=== PATIENT | female | born 1990 | race Hispanic/Latino ===

== ENCOUNTER 2016-11-01 20:29 | Outpatient (CLI) | payer OTHER ==
[~2016-11-01] VITALS: Ht 154.9 cm; Wt 73.0 kg
[2016-11-01] MEDS ORDERED: PROT20TA11 PO (21:06)
[2016-11-01] MEDS ORDERED: PRENTAB9 PO (21:06)
[2016-11-01] MEDS ORDERED: BUTORPHANOL 2 MG/ML INJ (J0595) IV ONE (22:30)
[2016-11-01] MEDS ORDERED: PROMETHAZINE INJ 25 MG/ML VIAL (J2550) IV ONE (22:30)
[2016-11-01] MEDS ORDERED: LR 1,000 ML IV ONE (23:00)
[2016-11-01] MEDS ORDERED: LR 1,000 ML IV SCH (23:00)
--- NOTE | 2016-11-02 15:15 | HPE ---
DATE OF ADMISSION: 11/01/2016 25-year-old 2, para 0, abortio 1, last menstrual period (LMP) 02/20/2016, estimated date of delivery (EDC) 11/26/2016 at 36 and 4 weeks of gestation with a 20-hour history of low back pain. Risk factors is she is GBS positive, acid reflux. Labs show B+, HIV negative, hepatitis negative, RPR negative. Varicella equivocal. Pap normal. Urine showed GBS positive. Gonorrhea and chlamydia are negative, and early 1-hour glucose was 87 and the 28-week glucose was 76. Cystic fibrosis was negative. Quad screen was declined. On examination, she appears to be distressed with low back pain; holding her back, vertex was presenting, 70% effaced, -1 and a fingertip in mid position. Blood pressure is 130/78, respirations are 18, pulse 81 and temperature is 98.9. Urine is 10/20, pH 6, negative, negative, negative. She has a category one strip. She is normocephalic, atraumatic. Neck: Full range of motions. Pupils equal and reactive to light. Distal pulses are symmetric. No evidence of deep venous thrombosis (DVT), pulmonary embolism (PE) or superficial phlebitis. Chest is clear bilaterally to bases. No wheezes or rhonchi. No costovertebral angle (CVA) tenderness. Appropriate symphysis fundus height. Four quadrant bowel sounds are noted. A category one strip. No rashes or lesions or pruritus. No arthralgia or myalgia. She is not complaining of cough, wheeze, shortness of breath or dyspnea on exertion. She has no chest pain. She is not bleeding. She is neuro complete. No incontinence, urgency or frequency. No loss of fluid or vaginal discharge. No nausea, vomiting, diarrhea or constipation. No diabetic issues. PAST MEDICAL HISTORY: Unremarkable. SOCIAL HISTORY: She does not smoke, drink or abuse drugs. She is . There is no domestic violence. In summary we have a 36 and 4 weeks of gestation with a low back pain suggestive changes of her cervix, possibly early labor. Our plan of management is to hydrate the patient, questionable labor. Assessment in one hour to establish if there has been any change in her cervix. We discussed the plan with the patient. She is planning on her mother coming in from [place] if she is in active labor.
== END 2016-11-02 06:46 | disposition home or self-care (01) ==
LOC: M LDO 20:29
PROVIDERS: ATTEND Obstetrics & Gynecology
DX: O26.893 Other specified pregnancy related conditions, third trimester (principal); M54.5 Low back pain; Z3A.36 36 weeks gestation of pregnancy; O99.825 Streptococcus B carrier state complicating the puerperium; O99.613 Diseases of the digestive system complicating pregnancy, third trimester; K21.9 Gastro-esophageal reflux disease without esophagitis
CPT/HCPCS: 59025; 96374; 96375; J0595

== ENCOUNTER 2016-11-02 13:06 | Outpatient (CLI) | payer OTHER ==
[~2016-11-02] VITALS: Ht 154.9 cm; Wt 71.0 kg
[~2016-11-02 13:06] MED LIST: PRENTAB9 PO; PROT20TA11 PO
[2016-11-02 13:28] VITALS: BP 129/69
--- NOTE | 2016-11-03 22:45 | HPE ---
DATE: 11/02/2016 This lady is 25-year-old 2, para 0, abortio 1, last menstrual period (LMP) 02/20/2016, estimated date of confinement (EDC) of 11/26/2016 at 36 and 4. Comes in with low back pain. RISK FACTORS She is group B streptococcus (GBS) positive. Has reflux. Labs show B positive, HIV negative, hepatitis negative, RPR negative. Varicella equivocal Pap normal. GBS is positive. Gonorrhea, chlamydia negative. One-hour glucose 87. A 28-week glucose 76. CF was negative and quad was declined. On initial examination, she was distressed female. Symphysis fundus height is 36, vertex presenting. Category 1 strip. No contractions, good accelerations, 70% effaced, minus 1, and a finger tip posterior. Blood pressure 130/78, respirations 18, pulse 81, temperature is 98.9. Urine 1.020, pH 6 negative, negative, negative. We have a with low back pain, considerable discomfort. Our plan of management was to hydrate her, give her some pain medications and attempt to see if we can break the cycle. Reassessment in 2-4 hours. While here, the patient was given Stadol and Phenergan. She intermittently slept through the low back pain. Palpating the abdomen, we could not demonstrate any contractions but she did have some back pain. There is no back spasm. Examination of her back muscles appeared to be normal. No costovertebral angle tenderness. PHYSICAL EXAMINATION: The rest of her physical examination was none remarkable. She is normocephalic, atraumatic. Neck full range of motion. Pupils equal and reactive to light. Distal pulses symmetric. No evidence of deep venous thrombosis (DVT), pulmonary embolism (PE) or superficial phlebitis. She has good motion. Legs good flexion and extension. Good muscle tone. Back muscles themselves are normalized. No deviation, no scoliosis, no suggestion of injury. Her chest is clear bilaterally to bases. No wheezes or rhonchi. Symphysis fundus height is appropriate. Four-quadrant bowel sounds are noted. No arthralgia or myalgia. ASSESSMENT: In summary, we have a lady with intermittent low back pain. No evidence to suggest labor. No change in her cervical dilatation. No evidence of preeclampsia. On multiple examinations of this patient, her cervix was unchanged. Still having the back pain. The patient has an appointment at the office this morning. She is going to be discharged for her with precautions, premature rupture of membranes, bleeding, contractions, decreased movement, and she will be reassessed in the clinic at her usual appointment. In summary we have a 36 and two weeks of gestation with low back pain. No evidence to suggest imminent delivery of labor. The patient was discharged undelivered.
== END 2016-11-02 14:52 | disposition home or self-care (01) ==
LOC: M LDO 13:06
PROVIDERS: ATTEND Obstetrics & Gynecology
DX: O26.893 Other specified pregnancy related conditions, third trimester (principal); M54.5 Low back pain; Z3A.36 36 weeks gestation of pregnancy; O99.825 Streptococcus B carrier state complicating the puerperium; O99.613 Diseases of the digestive system complicating pregnancy, third trimester; K21.9 Gastro-esophageal reflux disease without esophagitis

== ENCOUNTER 2016-11-02 23:38 | Outpatient (CLI) | payer OTHER | END 2016-11-03 00:30 | disposition home or self-care (01) | LOC: M LDO 23:38 | PROVIDERS: ATTEND Obstetrics & Gynecology | DX: O26.893 Other specified pregnancy related conditions, third trimester (principal); M54.5 Low back pain; Z3A.36 36 weeks gestation of pregnancy; O99.613 Diseases of the digestive system complicating pregnancy, third trimester; K21.9 Gastro-esophageal reflux disease without esophagitis; O99.825 Streptococcus B carrier state complicating the puerperium ==

== ENCOUNTER 2016-11-03 05:30 | Inpatient (IN) | payer OTHER ==
[~2016-11-03] VITALS: Ht 154.9 cm; Wt 73.0 kg
[2016-11-03] VITALS (8 sets, daily range): BP systolic 120–150; BP diastolic 58–86
[2016-11-03] MEDS ORDERED: LR 1,000 ML IV SCH (05:51)
[2016-11-03] MEDS ORDERED: OXYTOCIN DRIP 30 UNITS in APPROPRIATE DILUENT 1 EA IV SCH (06:00)
[2016-11-03] MEDS ORDERED: BUTORPHANOL 2 MG/ML INJ (J0595) IV ONE (06:00)
[2016-11-03] MEDS ORDERED: PROMETHAZINE INJ 25 MG/ML VIAL (J2550) IV ONE (06:00)
[2016-11-03] MEDS ORDERED: PENICILLIN G POTASSIUM 5 MU VIAL As Ordered ONE (06:03)
[2016-11-03] MEDS ORDERED: PENICILLIN G POTASSIUM IV 5 MU in D5W MINI-BAG PLUS 100 ML IV STA (06:04)
[2016-11-03 06:26] LABS: MEAN CORPUSCULAR HGB CONC 34.9 g/dl (32.0-36.5); MEAN CORPUSCULAR VOLUME 85.8 fl (80.0-96.0); RED CELL DISTRIBUTION WIDTH 12.2 % (11.5-14.5); WHITE BLOOD COUNT 18.1 K/mm3 (4.0-10.0)
[2016-11-03] MEDS ORDERED: NALBUPHINE HCL 10 MG/ML AMP (J2300) IV PRN (10:00)
[2016-11-03] MEDS ORDERED: PENICILLIN G POTASSIUM IV 2.5 MU in D5W 100 ML IV SCH (10:15)
[2016-11-03] MEDS ORDERED: NALBUPHINE HCL 10 MG/ML AMP (J2300) IM ONE (10:15)
[2016-11-03] MEDS ORDERED: RHOGAM 300 MCG (1500 IU) INJ (J2790) IM SCH (14:30)
[2016-11-03] MEDS ORDERED: ACETAMINOPHEN 500 MG TAB PO PRN (14:30)
[2016-11-03] MEDS ORDERED: METHYLERGONOVINE MALEATE 0.2 MG TAB PO PRN (14:30)
[2016-11-03] MEDS ORDERED: DOCUSATE SODIUM 100 MG CAP PO PRN (14:30)
[2016-11-03] MEDS ORDERED: IBUPROFEN 800 MG TAB PO PRN (14:30)
[2016-11-03] MEDS ORDERED: DIBUCAINE 1% OINTMENT 30GM TOP PRN (14:30)
[2016-11-04 05:24] VITALS: BP 126/56
[2016-11-04] MEDS: PRENATAL VITAMIN TAB PO SCH (08:32)
[2016-11-04 18:00] VITALS: BP 127/58
[2016-11-04 20:29] VITALS: BP 127/58
[2016-11-05 05:24] VITALS: BP 117/62
--- NOTE | 2016-11-05 05:52 | IPN ---
DATE: 11/04/2016 This patient has requested circumcision of their male infant. After discussing risks and benefits of circumcision, medical and nonmedical indications, penile block and aftercare, expressed understanding of the penile block and aftercare, signed and witnessed the consent form. We await the clearance by the blacksmith apprentice.
--- NOTE | 2016-11-05 07:31 | IPNPDOC ---
Text Note Date of Service The patient was seen on 11/05/16. NOTE Anton is a 25yo doing well on PPD 2 s/p uncomplicated after PPROM at 36w5d. She is . Lochia normal, spontaneously voiding and ambulating without difficulty. Tolerating regular diet. Denies f/c/n/v/SOB/CP/VASQUEZ /abdominal pain. Vitals wnl, afebrile Exam: General: WDWN, NAD, resting comfortably Cardiac: S1S2 present, no murmur Lungs: CTAB without wheeze/crackles Abdomen: soft, NTTP, fundus firm u-2cm Extremities: no tenderness of calves bilaterally Assessment: Anton is a 25yo doing well on PPD 2 s/p uncomplicated . Meeting all milestones. No e/o infection, hemodynamically stable. Plan: -discharge to home with routine follow-up for 6wk PP visit -home meds already given from clinic stock: motrin and lanolin -desires Mirena IUD for contraception Dr. Ramo Sparks MD [facility] PAGAN VS,Angeles, I+O VSAngeles, I+O Vital Signs Date Time Temp Pulse Resp B/P Pulse Ox O2 Delivery O2 Flow Rate FiO2 11/05/16 05:24 98.7 77 16 117/62 11/04/16 20:29 100 Room Air RAMO SPARKS MD Nov 05, 2016 07:31
[2016-11-05] MEDS ORDERED: IBUP-1114 PO (07:34)
[2016-11-05] MEDS: PRENATAL VITAMIN TAB PO SCH (08:05)
== END 2016-11-05 11:00 | disposition home or self-care (01) | DRG 775 ==
LOC: M LDO 05:30 → M LDI 05:50 → M OBS 16:48
PROVIDERS: ADMIT Obstetrics & Gynecology; ATTEND Obstetrics & Gynecology
PROC: 10E0XZZ Delivery of Products of Conception, External Approach (ICD-10-PCS; principal; 2016-11-03)
DX: O42.013 Preterm premature rupture of membranes, onset of labor within 24 hours of rupture, third trimester (principal); Z37.0 Single live birth; Z3A.36 36 weeks gestation of pregnancy; N88.8 Other specified noninflammatory disorders of cervix uteri; O26.893 Other specified pregnancy related conditions, third trimester

== ENCOUNTER 2017-04-21 17:40 | Emergency (ER) | payer OTHER ==
[~2017-04-21] VITALS: Ht 154.9 cm; Wt 56.8 kg
[~2017-04-21 17:40] MED LIST changes: +IBUP-1114 PO
[2017-04-21 17:43] VITALS: BP 127/72
[2017-04-21] MEDS ORDERED: TYLE325T5 PO (17:47)
[2017-04-21] MEDS ORDERED: PENI500T PO (18:18)
[2017-04-21] MEDS ORDERED: HYDR-3713 PO (18:18)
[2017-04-21] MEDS ORDERED: PENICILLIN V POTASSIUM 500 MG TAB PO ONE (18:30)
[2017-04-21] MEDS ORDERED: NORCO 5/325MG TABLET (BULK FOR ED) PO ONE (18:30)
== END 2017-04-21 18:35 | disposition home or self-care (01) ==
LOC: M ED 17:40
DX: R68.84 Jaw pain (principal)

== ENCOUNTER → 2018-09-24 | Outpatient (CLI) | payer OTHER ==
[~2018-09-24] MED LIST changes: +HYDR-3713 PO; +PENI500T PO; +TYLE325T5 PO
--- NOTE | 2018-09-24 20:30 | REP ---
Clinical: Ovarian cyst. IUD placement. Technique: Transabdominal pelvic ultrasound followed by transvaginal examination for better evaluation of the endometrium and adnexa with color Doppler evaluation of the ovaries. Findings: Bladder is unremarkable and measures 11.9 x 9.0 x 10.0 cm . The uterus has a partially septated appearance measuring 7.1 x 3.7 x 6.0 cm and with the IUD identified in the left moiety. The endometrial complex appears to be within normal range. Small amount of endocervical fluid is appreciated and the patient gives a history of current menstruation. Bilateral ovaries are normal in appearance and vascularity without evidence for torsion. Right ovary measures 3.3 x 1.4 x 3.5 cm with 1.6 cm involuting follicle ; R I = 0.51 . Left ovary measures 3.8 x 1.5 x 2.3 cm ; R I = 0.41 . No pelvic fluid or adnexal mass lesion. Impression: 1. Uterus has a partial septate appearance with IUD identified in the left moiety. Small amount of endocervical fluid (patient is currently bleeding/menstruating). 2. Bilateral ovaries without torsion. 1.6 cm involuting right ovarian cyst / follicle. Electronically Signed by Ken Figueroa MD 09/24/2018 08:21 P
== END ==
LOC: M RAD 13:14
PROVIDERS: ATTEND Nurse Practitioner Women's Health
DX: N83.201 Unspecified ovarian cyst, right side (principal); Q51.22 Partial doubling of uterus; Z97.5 Presence of (intrauterine) contraceptive device

== ENCOUNTER → 2019-02-02 | Outpatient (REF) | payer OTHER ==
[2019-02-02 22:19] LABS: CHLAMYDIA DNA AMPLIFICATION NEGATIVE (NEGATIVE); GC DNA AMPLIFICATION NEGATIVE (NEGATIVE)
== END ==
LOC: M SFHCLERA 17:52
PROVIDERS: ATTEND Nurse Practitioner Family
DX: R30.0 Dysuria (principal)
CPT/HCPCS: 81002; 81025; 87088; 87186; 87661; G0463

== ENCOUNTER → 2019-02-06 | Outpatient (CLI) | payer OTHER ==
[~2019-02-06] MED LIST changes: +PROHANCE 279.3MG/ML 15ML VIAL (A9576) As Ordered ONE
--- NOTE | 2019-02-06 17:47 | REP ---
MRI pelvis without and with IV contrast: History: Bicornuate uterus. History of miscarriage. Evaluation of uterine septum. Comparison sonography September 24, 2018 showed a partial septate appearance to the uterus. Technique: T1 and T2-weighted scans were obtained with axial, coronal and sagittal imaging planes. Coronal images are obtained parallel to the body of the uterus. Contrast enhancement is performed with 12 mL of intravenous ProHance. Post contrast imaging is included. MRI findings: An IUD is seen in the uterine endometrium. There is a left ovarian cyst which appears homogeneous measuring 3.9 cm in greatest diameter. The left ovary containing a cyst is high in the pelvis. The right ovary is somewhat high as well, but unremarkable. Uterus is anteverted and anteroflexed. There is a tiny Nabothian cyst. No focal uterine mass is seen. The IUD is in good position. Images obtained coronally in reference to the fundal endometrium demonstrate only a 2 mm indentation in the fundal serosal contour of the uterus between the two cornua. The fundal surface is concave, but bicornuate uterus usually shows a deeper cleft greater than 1 cm. There is a thick septum, however, this is partial only extending approximately 8 mm, well above the internal cervical os. The uterine horns are not very widely divergent. The intrauterine device enters the left uterine cornua. The cornual uterine cavities are conjoined just below the fundus. No focal uterine mass is seen. Postcontrast imaging shows homogeneous enhancement of the uterine myometrium. Impression: Findings consistent with subseptate uterus. Findings are not felt to be consistent with bicornuate uterus. IUD in place. 3.9 cm left ovarian cyst. Electronically Signed by Randall Hinton MD 02/09/2019 08:24 A
== END ==
LOC: M RAD 14:59
PROVIDERS: ATTEND Obstetrics & Gynecology
DX: Z87.59 Personal history of other complications of pregnancy, childbirth and the puerperium (principal); N83.202 Unspecified ovarian cyst, left side; Z97.5 Presence of (intrauterine) contraceptive device
CPT/HCPCS: 72197; A9576